=== PATIENT | female | born 1975 ===

== ENCOUNTER 2022-07-16 07:49 | Day surgery (SDC) | payer MEDICAID, OTHER ==
[~2022-07-16 07:49] MED LIST: ACETAMINOPHEN 500 MG TAB PO SCH; CELECOXIB 200 MG CAP PO NR; GABAPENTIN 300 MG CAP PO NR; LACTATED RINGERS 1,000 ML IV SCH; MIDAZOLAM 2 MG/2 ML INJ IV NR; SCOPOLAMINE TRANSDERMAL PATCH 72 HR TD NR; ceFAZolin/STERILE WATER 2 GM/20 ML SYRINGE IV NR
[2022-07-16 08:56] LABS: Hematocrit 42.9 % (30.3-42.9); Hemoglobin 14.6 gm/dl (10.1-14.3); Mean Corpuscular HGB Conc 34 % (30-34); Mean Corpuscular Volume 96 fl (79-97); Platelet Count 305 K/mm3 (140-440); Red Blood Count 4.49 M/mm3 (3.65-5.03); Red Cell Distribution Width 13.7 % (13.2-15.2)
[2022-07-16 09:10] LABS: Blood Urea Nitrogen 8 mg/dL (7-17); Calcium 8.8 mg/dL (8.4-10.2); Hemolysis Index 6
[2022-07-16 09:12] LABS: BUN/Creatinine Ratio 16
[2022-07-16] MEDS ORDERED: oxyCODONE /ACETAMINOPHEN 5-325MG TAB PO PRN (09:40)
[2022-07-16] MEDS ORDERED: HYDROmorphone 0.5 MG/0.5 ML INJ IV PRN (09:40)
--- NOTE | 2022-07-16 09:40 | Anesthesia Consultation ---
Anesthesia Consult and Med Hx Date of service: 07/16/22 - Airway Anesthetic Teeth Evaluation: Good ROM Head & Neck: Adequate Mental/Hyoid Distance: Adequate Mallampati Class: Class II Intubation Access Assessment: Possibly Difficult - Pre-Operative Health Status ASA Pre-Surgery Classification: ASA1 Proposed Anesthetic Plan: General - Pulmonary Hx Smoking: No Hx Respiratory Symptoms: No - Cardiovascular System Hx Hypertension: No - Central Nervous System CVA: No - Endocrine Hx Renal Disease: No Hx Liver Disease: No Hx Insulin Dependent Diabetes: No Hx Non-Insulin Dependent Diabetes: No Hx Thyroid Disease: No - Other Systems Hx Obesity: Yes (BMI 32) - Additional Comments Anesthesia Medical History Comments: No prior GA or FHx anesthetic complications.
--- NOTE | 2022-07-16 09:40 | Anesthesia Day of Surgery ---
Anesthesia Day of Surgery - Day of Surgery Patient Examined: Yes Patient H&P Reviewed: Yes Patient is NPO: Yes
[2022-07-16] MEDS ORDERED: BUPIVACAINE/PF (0.5%) 5 MG/1 ML 30 ML VIAL INFILTRATI ONE ×2 (10:48→11:35)
[2022-07-16] MEDS ORDERED: LIDOCAINE (1%) 10 MG/1 ML VIAL 20 ML MDV ONE (10:48)
[2022-07-16] MEDS ORDERED: ROCURONIUM 50 MG/5 ML INJ IV ONE (11:03)
[2022-07-16] MEDS ORDERED: LIDOCAINE MPF (2%) 20 MG/1 ML VIAL 5 ML ONE (11:03)
[2022-07-16] MEDS ORDERED: fentaNYL 100 MCG/2 ML INJ ONE (11:03)
[2022-07-16] MEDS ORDERED: propofoL 200 MG/20 ML VIAL IV ONE (11:03)
[2022-07-16] MEDS ORDERED: MIDAZOLAM 2 MG/2 ML INJ ONE (11:06)
[2022-07-16] MEDS ORDERED: dexAMETHasone 20 MG/5 ML VIAL ONE (11:20)
[2022-07-16] MEDS ORDERED: ONDANSETRON 4 MG/2 ML INJ ONE (11:20)
[2022-07-16] MEDS ORDERED: SODIUM CHLORIDE 0.9% IRR 1,500 ML BOTTLE IR ONE (11:36)
[2022-07-16] MEDS ORDERED: LIDOCAINE (1%) 10 MG/1 ML VIAL 20 ML MDV INFILTRATI ONE (11:36)
[2022-07-16] MEDS ORDERED: LACTATED RINGERS 1,000 ML ONE (11:54)
--- NOTE | 2022-07-16 12:18 | Short Stay Summary ---
Short Stay Documentation Date of service: 07/16/22 - History Principal diagnosis: umbilical hernia H&P: obtained from office - Allergies and Medications Current Medications: Allergies No Known Allergies Allergy (Verified 07/11/22 12:38) Home Medications Medication Instructions Recorded Confirmed Last Taken Type No Known Home Medications [No 07/11/22 07/11/22 Unknown History Reported Home Medications] Active Medications Acetaminophen (Acetaminophen 500 Mg Tab) 1,000 mg PO PREOP YUKI Stop: 07/16/22 23:59 Last Admin: 07/16/22 09:00 Dose: 1,000 mg Cefazolin Sodium (Cefazolin/Sterile Water 2 Gm/20 Ml Syringe) 2 gm IV PREOP NR Stop: 07/16/22 23:00 Celecoxib (Celecoxib 200 Mg Cap) 200 mg PO PREOP NR Stop: 07/16/22 23:59 Last Admin: 07/16/22 09:00 Dose: 200 mg Gabapentin (Gabapentin 300 Mg Cap) 300 mg PO PREOP NR Stop: 07/16/22 23:59 Last Admin: 07/16/22 09:00 Dose: 300 mg Hydromorphone HCl (Hydromorphone 0.5 Mg/0.5 Ml Inj) 0.5 mg IV Q10MIN PRN PRN Reason: Pain , Severe (7-10) Stop: 07/16/22 20:00 Lactated Ringer's (Lactated Ringers) 1,000 mls @ 100 mls/hr IV DIRECT YUKI Stop: 07/16/22 23:59 Last Admin: 07/16/22 09:00 Dose: 100 mls/hr Midazolam HCl (Midazolam 2 Mg/2 Ml Inj) 2 mg IV PREOP NR Stop: 07/16/22 23:59 Scopolamine (Scopolamine Transdermal Patch 72 Hr) 1 each TD PREOP NR Stop: 07/16/22 23:59 Last Admin: 07/16/22 09:00 Dose: 1 each - Brief post op/procedure progress note Date of procedure: 07/16/22 Pre-op diagnosis: umbilical hernia Post-op diagnosis: same Procedure: open primary umbilical hernia repair with mesh Anesthesia: GETA, local Findings: <1cm umbilical hernia with incarcerated preperitoneal fat Surgeon: REBECA DESOUZA Estimated blood loss: minimal Pathology: none Condition: stable - Hospital course Hospital course: PT OBSERVED IN PACU AND DISCHARGED TO HOME IN STABLE CONDITION - Disposition Condition at discharge: Good Disposition: 01 HOME / SELF CARE / HOMELESS Short Stay Discharge Plan Activity: other (NO HEAVY LIFTING GREATER THAN 15 LBS FOR 6 WEEKS) Wound: open to air Additional Instructions: SEE PRINTED INSTRUCTIONS Follow up with: PRIMARY CARE,MD [Primary Care Provider] - 7 Days REBECA DESOUZA DO [Staff Physician] - 14 Days Prescriptions: Docusate Sodium [Colace] 100 mg PO DAILY #30 capsule polyethylene glycoL 3350 [Miralax 3350] 17 gm PO QDAY PRN #30 packet PRN Reason: Constipation HYDROcodone/APAP 5-325 [[place] 5/325] 1 each PO Q4HR PRN #25 tablet PRN Reason: Pain
--- NOTE | 2022-07-16 14:21 | Post Anesthesia Evaluation ---
- Post Anesthesia Evaluation Patient Participated: Yes Airway Patent: Yes Stable Respiratory Function: Yes Nausea/Vomiting: No Temp > 96.8F: Yes Pain Manageable: Yes Adequeate Hydration: Yes Anesthesia Complications: No
[2022-07-16 15:39] VITALS: BP 144/85
--- NOTE | 2022-07-17 12:13 | Operative Report ---
Operative Report Operative Report: Date of procedure: 07/16/22 Pre-op diagnosis: umbilical hernia Post-op diagnosis: same Procedure: open primary umbilical hernia repair with mesh Anesthesia: MARY KAY local Findings: <1cm umbilical hernia with incarcerated preperitoneal fat Surgeon: REBECA DESOUZA Estimated blood loss: minimal Pathology: none Condition: stable Hospital course: PT OBSERVED IN PACU AND DISCHARGED TO HOME IN STABLE CONDITION Condition at discharge: Good Disposition: 01 HOME / SELF CARE / HOMELESS HPI indication: Patient is a 47-year-old female who presented to the surgery clinic with a symptomatic umbilical hernia. The patient was having more discomfort in the area and elected to have this fixed. As the hernia defect was very small, <1cm, it was recommended that she undergo an open umbilical hernia repair. All risk, benefits, alternatives to surgery discussed with patient questions answered. Consent was obtained. Procedure in detail: Patient was identified in the preoperative area, taken back to the operating room and placed on the operating room table in supine position. After anesthesia was induced the abdomen was prepped and draped in usual sterile fashion timeout performed. Local anesthetic was infiltrated into the skin at the intended incision site. A semilunar incision was made at the inferior aspect of the umbilicus using a 15 blade. Dissection was carried down through skin and subcutaneous tissue using Bovie electrocautery until the hernia was encountered. The umbilicus was dissected free from the hernia sac. The hernia sac and its contents were circumferentially dissected free from the surrounding tissue using a hemostat and electrocautery. The fascia was identified and freed of overlying tissue circumferentially. There was a <1cm fascial defect. It was decided to repair the hernia primarily. The fascia was closed using interrupted 0 Prolene stitches. The subcutaneous tissue was irrigated and hemostasis ensured. The umbilicus was tacked down to the fascia using a 3-0 Vicryl interrupted stitch. The deep dermal layer was closed using 3-0 Vicryl interrupted sutures. The skin was approximated using 4-0 Monocryl subcuticular running stitch and skin glue. After the glue was dry a 4 x 4 fluff gauze was placed in the umbilicus and secured with a Tegaderm. At the end of the case, all sponge, instrument, sharp counts were correct x2. The patient was awoken from anesthesia extubated and taken to PACU in stable condition.
== END 2022-07-16 13:52 | disposition home or self-care (01) ==
LOC: OR 07:49
PROVIDERS: ATTEND Surgery
DX: K42.0 Umbilical hernia with obstruction, without gangrene (principal); E66.9 Obesity, unspecified; Z68.32 Body mass index [BMI] 32.0-32.9, adult; Z79.899 Other long term (current) drug therapy; Z98.890 Other specified postprocedural states
CPT/HCPCS: 36415; 49587; 80048; 81025; 85027; J0690; J1100; J1170; J2250; J2405; J2704; J3010; J3490; J7120